=== PATIENT | female | born 1965 | race Caucasian/White ===

== ENCOUNTER 2024-11-02 13:01 | Emergency (ER) | payer MEDICAID | END 2024-11-02 13:42 | disposition home or self-care (01) | LOC: VM.ED 13:01 | DX: S91.205A Unspecified open wound of left lesser toe(s) with damage to nail, initial encounter (principal); S91.202A Unspecified open wound of left great toe with damage to nail, initial encounter; E10.9 Type 1 diabetes mellitus without complications; Z91.030 Bee allergy status; Z79.4 Long term (current) use of insulin; Z79.899 Other long term (current) drug therapy; X58.XXXA Exposure to other specified factors, initial encounter; Y93.89 Activity, other specified | CPT/HCPCS: 99283 ==